=== PATIENT | male | born 1995 | race Caucasian/White ===

== ENCOUNTER 2022-07-25 09:04 | Emergency (ER) | payer BC, SELFPAY ==
[2022-07-25 10:27] LABS: Bilirubin Negative (Negative); Blood, Urine Negative (Negative); Clarity Clear (Clear); Glucose, Urine (Dipstick) Negative (Negative); Ketone, Urine Negative (Negative); Leukocyte Negative (Negative); Nitrite Negative (Negative); Protein, Urine (Dipstick) Negative (Neg-Trace); Urobilinogen 0.2 mg/dL (Less than 2)
[2022-07-25] MEDS ORDERED: Ketorolac Tromethamine 60 MG/2 ML VIAL ONE (10:51)
== END 2022-07-25 11:05 | disposition home or self-care (01) ==
LOC: MADERS 09:04
DX: M54.2 Cervicalgia (principal); M54.50 Low back pain, unspecified; F17.210 Nicotine dependence, cigarettes, uncomplicated
CPT/HCPCS: 74176; 81003; 96372; J1885